=== PATIENT | female | born 1965 | race Caucasian/White ===

== ENCOUNTER 2018-10-20 16:51 | Emergency (ER) | payer OTHER ==
[~2018-10-20] VITALS: Ht 142.2 cm; Wt 91.4 kg
[2018-10-20 17:03] VITALS: BP 115/81
[2018-10-20 17:48] LABS: EOSINOPHILS % (AUTO) 0.3 % (0.0-4.0); HEMATOCRIT 41.8 % (36-48); HEMOGLOBIN 13.7 g/dL (12.0-16.0); LYMPHOCYTES # (AUTO) 0.8 K/uL (2.5-16.5); LYMPHOCYTES % (AUTO) 6.7 % (20.5-51.1); MEAN CORPUSCULAR HEMOGLOBIN 28 pg (27-31); MEAN CORPUSCULAR HGB CONC 33 g/dL (33-37); MEAN CORPUSCULAR VOLUME 86.6 fL (80-94); MONOCYTES # (AUTO) 0.4 K/uL (0.8-1.0); MONOCYTES % (AUTO) 3.1 % (1.7-9.3); NEUTROPHILS # (AUTO) 10.9 K/uL (1.8-7.7); NEUTROPHILS % (AUTO) 89.9 % (42.2-75.2); PLATELET COUNT (AUTO) 204 K/uL (140-450); RED BLOOD CELL COUNT(AUTO) 4.83 MIL/uL (4.20-5.40); RED CELL DISTRIBUTION WIDTH 14.1 % (11.6-13.7); WHITE BLOOD COUNT (AUTO) 12.2 K/uL (4.8-10.8)
[2018-10-20 18:16] LABS: ANION GAP 15.2 (8-16); CARBON DIOXIDE 25.5 mmol/L (21-32); CREATININE 0.9 mg/dL (0.6-1.3); POTASSIUM 3.7 mmol/L (3.5-5.1)
[2018-10-20 18:21] LABS: ALBUMIN 3.5 g/dL (3.4-5.0); TOTAL BILIRUBIN 0.5 mg/dL (0.0-1.0)
--- NOTE | 2018-10-20 18:22 | NUR ---
pt ambulated to bed 2
--- NOTE | 2018-10-20 18:41 | NUR ---
53F C/O N/V/D SINCE THIS MORNING. MOM STATES FAMILY ATE [facility]ICKEN LAST NIGHT, ENTIRE FAMILY HAS N/V/D SINCE THIS MORNING. STATES 8/10 EPIGASTRIC PAIN. +BS IN ALL QUADRANTS. NO S/S ACUTE DISTRESS. BEDRAILS UP X1, LOCKED AND LOW. ERMD TO EVAL PT. MEDHX:DM, HTN, HLD, HYPERTHYROIDISM
--- NOTE | 2018-10-20 19:13 | NUR ---
Pt report given to DAVID. Transfer of care at this time.
[2018-10-20] MEDS ORDERED: NACL 0.9% 1,000 ML IV ONE (19:55)
[2018-10-20] MEDS ORDERED: ONDANSETRON 4 MG/2 ML VIAL IVP ONE (19:55)
[2018-10-20] MEDS ORDERED: KETOROLAC 15 MG/ML VIAL IVP ONE (19:55)
--- NOTE | 2018-10-20 21:03 | NUR ---
DISCHARGE PAPERWORK PROVIDED TO PT. NO N/V PT STATES RELIEF. RX OF ZOFRAN SIDE EFFECTS EXPLAINED. INSTRUCTED TO MAINTAIN ADEQUATE FLUID INTAKE. INSTRUCTED TO FOLLOW WITH PCP AND WHEN TO RETURN TO ER. PT VERBALIZED UNDERSTANDING OF D/C INSTRUCTIONS. ALL QUESTIONS ANSWERED.
[2018-10-20 21:14] VITALS: BP 100/64
== END 2018-10-20 21:03 | disposition home or self-care (01) ==
LOC: MED 16:51
DX: T62.8X1A Toxic effect of other specified noxious substances eaten as food, accidental (unintentional), initial encounter (principal); R11.2 Nausea with vomiting, unspecified; R19.7 Diarrhea, unspecified; I10 Essential (primary) hypertension; E11.9 Type 2 diabetes mellitus without complications; E78.5 Hyperlipidemia, unspecified; Z86.39 Personal history of other endocrine, nutritional and metabolic disease; Y92.89 Other specified places as the place of occurrence of the external cause
CPT/HCPCS: 36415; 80053; 81002; 82948; 85025; 96361; 96374; 96375; 99283; J1885; J2405; J7030

== ENCOUNTER 2020-02-18 18:10 | Emergency (ER) | payer OTHER ==
[~2020-02-18] VITALS: Ht 144.8 cm; Wt 107.0 kg
[2020-02-18 18:42] VITALS: BP 158/109
--- NOTE | 2020-02-18 19:54 | NUR ---
To ED bed 05
--- NOTE | 2020-02-18 20:20 | NUR ---
54 YO F BIB SELF WITH C/C OF BURNING DURING URINATION X3DAYS 10/12 WHILE URINATING. PT DENIED CHANGES IN URINATING BESIDES PAIN. PT DENIED BLOOD IN URINE, FEVER, N/V AND CHILLS. PT STATED SHES BEEN TAKING TYLENOL FOR PAIN AND IT HELPS. BS: 105. BED LOCKED IN LOWEST POSITION, SIDE RAILS X1. HX: DM, HIGH CHOLEST, HTN, HYPOTHRY RX: SEE TRIAGE NOTES NKA
[2020-02-18 21:05] VITALS: BP 140/88
--- NOTE | 2020-02-18 21:05 | NUR ---
Patient discharged with v/s stable. Written and verbal after care instructions given and explained. Patient alert, oriented and verbalized understanding of instructions. Ambulatory with to car. All questions addressed prior to discharge. ID band removed. Patient advised to follow up with PMD. Rx of Keflex, Pyridium and Tylenol given. Patient educated on indication of medication including possible reaction and side effects. Opportunity to ask questions provided and answered.
[2020-02-18 21:33] LABS: APPEARANCE,URINE CLEAR (CLEAR); BILIRUBIN,URINE NEGATIVE (NEGATIVE); BLOOD, URINE 3+ (NEGATIVE); COLOR,URINE YELLOW (YELLOW); LEUKOCYTE ESTERASE ,URINE 2+ (NEGATIVE); NITRITE, URINE POSITIVE (NEGATIVE); UGLUCOSE NEGATIVE (NEGATIVE)
[2020-02-18 21:47] LABS: RBC,URINE 11-20 (MOD) /HPF (0-5); WBC,URINE 16-25 (MOD) /HPF (0-5)
--- NOTE | 2020-02-18 21:50 | NUR ---
Note florentinamado in EDM - 02/19/20 at 0353 by MED Patient discharged with v/s stable. Written and verbal after care instructions given and explained. Patient alert, oriented and verbalized understanding of instructions. Ambulatory with to car. All questions addressed prior to discharge. ID band removed. Patient advised to follow up with PMD. Rx of Keflex, Pyridium and Tylenol given. Patient educated on indication of medication including possible reaction and side effects. Opportunity to ask questions provided and answered.
--- NOTE | 2020-02-21 14:21 | NUR ---
Urine culture received from lab. Culture and sensitivity received and shown to Dr. Cowart. No new orders received. Treatment appropriate. No further care needed. Copy of C&S placed in discrepancy folder.
== END 2020-02-18 21:05 | disposition home or self-care (01) ==
LOC: MED 18:10
DX: N39.0 Urinary tract infection, site not specified (principal); E11.9 Type 2 diabetes mellitus without complications; I10 Essential (primary) hypertension; E07.9 Disorder of thyroid, unspecified
CPT/HCPCS: 81001; 81002; 87086; 99283

== ENCOUNTER 2020-05-16 17:53 | Emergency (ER) | payer OTHER ==
[~2020-05-16] VITALS: Ht 147.3 cm; Wt 108.9 kg
[2020-05-16 18:00] VITALS: BP 95/65
--- NOTE | 2020-05-16 18:06 | NUR ---
PATIENT AMBULATED TO BED11.
[2020-05-16] MEDS ORDERED: NACL 0.9% 1,000 ML IV SCH (18:40)
[2020-05-16] MEDS ORDERED: MORPHINE SULFATE 4 MG/ML SYR IVP ONE (18:40)
[2020-05-16 19:12] LABS: APPEARANCE,URINE CLEAR (CLEAR); BILIRUBIN,URINE NEGATIVE (NEGATIVE); BLOOD, URINE NEGATIVE (NEGATIVE); COLOR,URINE YELLOW (YELLOW); LEUKOCYTE ESTERASE ,URINE NEGATIVE (NEGATIVE); NITRITE, URINE NEGATIVE (NEGATIVE); UGLUCOSE TRACE (NEGATIVE)
--- NOTE | 2020-05-16 19:20 | NUR ---
LAB AT BEDSIDE
--- NOTE | 2020-05-16 19:28 | NUR ---
ULTRASOUND AT BEDSIDE
--- NOTE | 2020-05-16 19:30 | NUR ---
REPORT RECEIVED FROM ZULEIMA ORTIZ FOR CONTINUITY OF CARE
[2020-05-16 19:32] LABS: BASOPHILS # (AUTO) 0.1 K/uL (0.00-0.22); BASOPHILS % (AUTO) 0.7 % (0.0-2.0); EOSINOPHILS # (AUTO) 0.1 K/uL (0-0.4); EOSINOPHILS % (AUTO) 1.3 % (0.0-4.0); HEMOGLOBIN 11.5 g/dL (12.0-16.0); LYMPHOCYTES # (AUTO) 1.9 K/uL (2.5-16.5); LYMPHOCYTES % (AUTO) 23.2 % (20.5-51.1); MEAN CORPUSCULAR HEMOGLOBIN 30 pg (27-31); MEAN CORPUSCULAR HGB CONC 34 g/dL (33-37); MEAN CORPUSCULAR VOLUME 87.9 fL (80-94); MONOCYTES # (AUTO) 0.5 K/uL (0.8-1.0); MONOCYTES % (AUTO) 6.5 % (1.7-9.3); NEUTROPHILS # (AUTO) 5.6 K/uL (1.8-7.7); NEUTROPHILS % (AUTO) 68.3 % (42.2-75.2); PLATELET COUNT (AUTO) 163 K/uL (140-450); RED BLOOD CELL COUNT(AUTO) 3.87 MIL/uL (4.20-5.40); RED CELL DISTRIBUTION WIDTH 14.1 % (11.6-13.7); WHITE BLOOD COUNT (AUTO) 8.2 K/uL (4.8-10.8)
[2020-05-16 19:58] LABS: ALBUMIN 3.3 g/dL (3.4-5.0); ANION GAP 11.5 (8-16); CARBON DIOXIDE 27.7 mmol/L (21-32); CREATININE 1.1 mg/dL (0.6-1.3); POTASSIUM 3.2 mmol/L (3.5-5.1); TOTAL BILIRUBIN 0.3 mg/dL (0.0-1.0)
[2020-05-16] MEDS ORDERED: DICYCLOMINE HCL LIQUID 20 MG, ALUMINUM HYD/MAG/SIMETHICONE 30 ML, LIDOCAINE VISCOUS 2% ... PO ONE ×3 (20:25)
[2020-05-16] MEDS ORDERED: ALUMINUM HYD/MAG/SIMETHICONE 30 ML UDC ONE (20:32)
[2020-05-16] MEDS ORDERED: LIDOCAINE VISCOUS 2% 20 ML UDC ONE (20:32)
[2020-05-16] MEDS ORDERED: DICYCLOMINE HCL LIQUID 10 MG/5 ML UDC ONE (20:32)
[2020-05-16 22:30] VITALS: BP 100/75
--- NOTE | 2020-05-16 22:30 | NUR ---
Patient discharged with v/s stable. Written and verbal after care instructions given and explained. Patient verbalized understanding. Ambulatory with steady gait. All questions addressed prior to discharge. Advised to follow up with PMD.
== END 2020-05-16 22:30 | disposition home or self-care (01) ==
LOC: MED 17:53
DX: R10.13 Epigastric pain (principal); E11.9 Type 2 diabetes mellitus without complications; I10 Essential (primary) hypertension; E07.9 Disorder of thyroid, unspecified; E78.00 Pure hypercholesterolemia, unspecified
CPT/HCPCS: 36415; 76705; 80053; 81003; 82150; 82948; 83690; 84484; 84703; 85025; 93005; 96361; 96374; 99285; J2270; J7030; 96360

== ENCOUNTER 2020-05-24 20:40 | Emergency (ER) | payer OTHER ==
[~2020-05-24] VITALS: Ht 147.3 cm; Wt 105.3 kg
[2020-05-24 20:45] VITALS: BP 121/66
--- NOTE | 2020-05-24 20:45 | NUR ---
Note undone in EDM - 05/24/20 at 2251 by LUL 54-year-old female bib self with primary complain of abdominal pain x1 week. She states she went to the ER last week with abd pain and the medication given to her was effective. On assessment, patient is a/o x4, speaks mainly in gambian. Observed to be crying with facial grimacing due to abd pain. She said she hasn't eaten for the day due to nausea/vomiting r/t abd pain. She took tylenol for pain, ineffective. Denies chest pain, cough, shortness of breath. No fever noted. Denies urinary symptoms. Denies constipation or diarrhea. IV started to RT AC x1 attempt. Left patient in bed, comfortable with both siderails up. ERMD aware. HX: DM2, HLD, HTN, Thyroid LMP: unable to recall
--- NOTE | 2020-05-24 20:58 | NUR ---
PT TRIAGED AND AMBULATED TO ER VERÓNICA NANCE. PT ABLE TO PROVIDE UA SAMPLE AT THIS TIME.
--- NOTE | 2020-05-24 21:21 | NUR ---
AMBULATED TO BED 12.
--- NOTE | 2020-05-24 21:30 | NUR ---
54-year-old female bib self with primary complain of abdominal pain x1 week. She states she went to the ER last week with abd pain and the medication given to her was effective. On assessment, patient is a/o x4, speaks mainly in french. Observed to be crying with facial grimacing due to abd pain. She said she hasn't eaten for the day due to nausea/vomiting r/t abd pain. She took tylenol for pain, ineffective. Denies chest pain, cough, shortness of breath. No fever noted. Denies urinary symptoms. Denies constipation or diarrhea. IV started to RT AC x1 attempt. Left patient in bed, comfortable with both siderails up. ERMD aware. HX: DM2, HLD, HTN, Thyroid LMP: unable to recall
[2020-05-24] MEDS ORDERED: ONDANSETRON 4 MG/2 ML VIAL IVP ONE (21:40)
[2020-05-24] MEDS ORDERED: NACL 0.9% 500 ML IV ONE (21:40)
[2020-05-24] MEDS ORDERED: KETOROLAC 30 MG/ML VIAL IVP ONE (21:40)
[2020-05-24 22:04] LABS: BASOPHILS # (AUTO) 0.1 K/uL (0.00-0.22); BASOPHILS % (AUTO) 1.2 % (0.0-2.0); EOSINOPHILS # (AUTO) 0.1 K/uL (0-0.4); EOSINOPHILS % (AUTO) 1.3 % (0.0-4.0); HEMATOCRIT 37.8 % (36-48); HEMOGLOBIN 12.7 g/dL (12.0-16.0); LYMPHOCYTES # (AUTO) 2.2 K/uL (2.5-16.5); LYMPHOCYTES % (AUTO) 26.3 % (20.5-51.1); MEAN CORPUSCULAR HEMOGLOBIN 29 pg (27-31); MEAN CORPUSCULAR HGB CONC 34 g/dL (33-37); MEAN CORPUSCULAR VOLUME 87.4 fL (80-94); MONOCYTES # (AUTO) 0.6 K/uL (0.8-1.0); MONOCYTES % (AUTO) 6.7 % (1.7-9.3); NEUTROPHILS # (AUTO) 5.4 K/uL (1.8-7.7); NEUTROPHILS % (AUTO) 64.5 % (42.2-75.2); PLATELET COUNT (AUTO) 205 K/uL (140-450); RED BLOOD CELL COUNT(AUTO) 4.33 MIL/uL (4.20-5.40); RED CELL DISTRIBUTION WIDTH 13.4 % (11.6-13.7); WHITE BLOOD COUNT (AUTO) 8.3 K/uL (4.8-10.8)
[2020-05-24 22:19] LABS: ALBUMIN 3.7 g/dL (3.4-5.0); ANION GAP 14.6 (8-16); CARBON DIOXIDE 27.8 mmol/L (21-32); CREATININE 0.9 mg/dL (0.6-1.3); POTASSIUM 3.4 mmol/L (3.5-5.1); TOTAL BILIRUBIN 0.3 mg/dL (0.0-1.0)
[2020-05-24] MEDS ORDERED: PANTOPRAZOLE 40 MG INJ VIAL IVP ONE (22:55)
[2020-05-24] MEDS ORDERED: ASPIRIN 81 MG TAB.CHEW PO ONE (22:55)
[2020-05-24] MEDS ORDERED: HYDROcodone/APAP 7.5/325 MG 1 TAB PO PRN (23:50)
[2020-05-24] MEDS ORDERED: ONDANSETRON 4 MG/2 ML VIAL IM/IVP PRN (23:50)
[2020-05-24] MEDS ORDERED: ACETAMINOPHEN 325 MG TAB PO PRN (23:50)
[2020-05-24] MEDS ORDERED: DOCUSATE SODIUM 100 MG GELCAP PO PRN (23:50)
[2020-05-24] MEDS ORDERED: POTASSIUM CHLORIDE 10 MEQ TABER PO PRN (23:50)
--- NOTE | 2020-05-24 23:58 | NUR ---
UA NEG, HCG NEG.
--- NOTE | 2020-05-25 00:25 | NUR ---
PRN dose of KCL 40meq PO given as ordered (K+ level at 3.4).
[2020-05-25 00:36] LABS: CHOL/HDL RATIO 2.1 (1-4.5); FREE T4 (FREE THYROXINE) 2.07 ng/dL (0.76-1.46); MAGNESIUM 1.5 mg/dL (1.8-2.4); PHOSPHORUS 3.4 mg/dL (2.5-4.9); THYROID STIMULATING HORMONE 0.45 uIU/mL (0.34-3.74)
--- NOTE | 2020-05-25 00:38 | NUR ---
SPOKE WITH JB CASE MANAGEMENT [facility] AND PROVIDED UPDATE STATUS, PER JB PT MAY NOT MEET THE CRITIRIA FOR ADMISSION.
--- NOTE | 2020-05-25 01:06 | NUR ---
GET Bautista spoke to Emiliana from [facility]. Dr. Bautista approved transfer to [facility] under the care of Dr. Birmingham.
--- NOTE | 2020-05-25 02:10 | NUR ---
Sent Pema to lab.
--- NOTE | 2020-05-25 02:25 | NUR ---
RECEIVED VERBAL ORDER FROM / REGARDING TRANSFER MD, , FROM [facility] FOR A TROP LEVEL NOW.
--- NOTE | 2020-05-25 02:43 | NUR ---
LAB AT BEDSIDE.
--- NOTE | 2020-05-25 04:37 | NUR ---
Patient appears comfortable and in no signs of any distress.
--- NOTE | 2020-05-25 06:25 | NUR ---
Called [facility] and spoke to GIO Palmer RN. Report given for continuity of care. Patient will be transported via [facility] ambulance at 0700.
--- NOTE | 2020-05-25 07:13 | NUR ---
Report given to Jamilah ORTIZ for continuity of care.
--- NOTE | 2020-05-25 07:13 | NUR ---
report received from Michelle ORTIZ, transfer of care at this time.
--- NOTE | 2020-05-25 07:59 | NUR ---
Note undone in EDM - 05/25/20 at 0824 by [facility] Patient to be transferred to [facility]. Is being transferred due to insurance request. Receiving facility has accepting physician and available space. ER physician has signed transfer form. Patient or responsible libertarian has agreed to transfer and signed form. Patient belongings inventoried and will be sent with patient. Copy of nursing notes, lab reports, EKG, Physicians Orders and X-rays to be sent with patient. Report called to Estela ORTIZ at receiving facility. [facility] ambulance service has been called for transfer. ETA is 25.
--- NOTE | 2020-05-25 07:59 | NUR ---
Patient to be transferred to [facility]. Is being transferred due to insurance request. Receiving facility has accepting physician and available space. ER physician has signed transfer form. Patient or responsible libertarian has agreed to transfer and signed form. Patient belongings inventoried and will be sent with patient. Copy of nursing notes, lab reports, EKG, Physicians Orders and X-rays to be sent with patient. Report called to Estela ORTIZ at receiving facility. [facility] ambulance service has been called for transfer. ETA is 25.
[2020-05-25 08:00] VITALS: BP 105/36
[2020-05-25] MEDS ORDERED: ECOTRIN 81 MG TABEC PO SCH (09:00)
[2020-05-26 12:15] LABS: T4 (THYROXINE) 12.1 ug/dL (4.5 - 12.0)
--- NOTE | 2020-05-27 22:49 | NUR ---
LATE ENTRY- Normal saline 0.9% IV fluids discontinued at 0030
== END 2020-05-25 07:59 | disposition designated cancer center or children's hospital (05) ==
LOC: MED 20:40 → MTU 23:12 → UNDOADMIN 23:12 → MED 05-25 07:59
DX: R10.13 Epigastric pain (principal); E11.9 Type 2 diabetes mellitus without complications; I10 Essential (primary) hypertension; E07.9 Disorder of thyroid, unspecified; Z20.822 Contact with and (suspected) exposure to COVID-19
CPT/HCPCS: 36415; 71045; 80053; 80061; 83036; 83690; 83735; 83880; 84100; 84436; 84439; 84443; 84479; 84484; 85025; 87426; 93005; 96361; 96374; 96375; 99285; C9113; J1885; J2405; J7030

== ENCOUNTER 2021-05-29 16:36 | Emergency (ER) | payer OTHER ==
[~2021-05-29] VITALS: Ht 144 cm; Wt 98.7 kg
[2021-05-29 17:12] VITALS: BP 146/97
--- NOTE | 2021-05-29 17:15 | NUR ---
BIB SELF C/O 10/10 RIGHT BIG TOE PAIN X 3 DAYS.
[2021-05-29] MEDS ORDERED: LIDOCAINE MPF 1% 10 MG/ML VIAL INJ ONE ×2 (18:05)
[2021-05-29] MEDS ORDERED: BACITRACIN OINT 500 UNITS/GM PKT TP ONE ×2 (18:05→19:41)
--- NOTE | 2021-05-29 19:30 | NUR ---
PT TAKEN TO BED #9
[2021-05-29] MEDS ORDERED: LIDOCAINE MPF 1% 10 ML ONE (19:39)
--- NOTE | 2021-05-29 20:05 | NUR ---
PA AT BEDSIDE PERFORMING PROCEDURE
[2021-05-29] MEDS ORDERED: BACI1PAC6 TP (20:29)
[2021-05-29] MEDS ORDERED: CEPH-588 PO (20:29)
[2021-05-29] MEDS ORDERED: ACET-10509 PO (20:29)
[2021-05-29 21:04] VITALS: BP 146/97
--- NOTE | 2021-05-29 21:04 | NUR ---
Patient discharged with v/s stable. Written and verbal after care instructions given and explained. Patient alert, oriented and verbalized understanding of instructions. Ambulatory with steady gait. All questions addressed prior to discharge. ID band removed. Patient advised to follow up with PMD. Rx of Acetaminophen, Bacitracin, and Cephalexin given. Patient educated on indication of medication including possible reaction and side effects. Opportunity to ask questions provided and answered. VSS, A/OX4, AMBULATORY, UNLABORED BREATHING, AND CALM DEMEANOR.
== END 2021-05-29 21:04 | disposition home or self-care (01) ==
LOC: MED 16:36
DX: L60.0 Ingrowing nail (principal); I11.9 Hypertensive heart disease without heart failure; E11.9 Type 2 diabetes mellitus without complications; E07.9 Disorder of thyroid, unspecified; Z79.899 Other long term (current) drug therapy
CPT/HCPCS: 11760; 99284; J2001

== ENCOUNTER 2023-03-17 20:07 | Emergency (ER) | payer OTHER ==
[~2023-03-17] VITALS: Ht 143.5 cm; Wt 108.0 kg
[~2023-03-17 20:07] MED LIST: ACET-10509 PO; BACI-418 TP; CEPH-588 PO
[2023-03-17 20:18] VITALS: BP 136/102; PULSE 81; RESP 18; TEMP 97.8; O2SAT 98
[2023-03-17 21:10] VITALS: BP 147/67; PULSE 65; RESP 17; O2SAT 97
[2023-03-17] MEDS ORDERED: KETOROLAC 30 MG/ML VIAL IM ONE (22:20)
[2023-03-17] MEDS ORDERED: HYDROcodone/APAP 5/325 MG 1 TAB TAB PO ONE (22:20)
[2023-03-18] MEDS ORDERED: NAPR-54 PO (00:11)
[2023-03-18] MEDS ORDERED: ACET-8905 PO (00:11)
== END 2023-03-18 00:16 | disposition home or self-care (01) ==
LOC: MED 20:07
DX: M19.072 Primary osteoarthritis, left ankle and foot (principal); E11.40 Type 2 diabetes mellitus with diabetic neuropathy, unspecified; M17.12 Unilateral primary osteoarthritis, left knee; I10 Essential (primary) hypertension; E78.5 Hyperlipidemia, unspecified; Z86.39 Personal history of other endocrine, nutritional and metabolic disease; Z79.899 Other long term (current) drug therapy; Z79.1 Long term (current) use of non-steroidal anti-inflammatories (NSAID); Z79.2 Long term (current) use of antibiotics
CPT/HCPCS: 73560; 73600; 93971; 96372; 99285; J1885; Q0092